=== PATIENT | male | born 2000 | race Caucasian/White ===

== ENCOUNTER → 2020-09-22 16:38 | Outpatient (CLI) | payer OTHER, SELFPAY ==
[2020-09-22 17:38] LABS: Cholesterol 148 mg/dL (140-199); HDL Cholesterol 42 mg/dL (40-60); LDL Cholesterol Calculated 72 mg/dL (<100); Triglycerides 171 mg/dL (35-150)
[2020-09-22 18:14] LABS: Hepatitis B Surface Antigen NEGATIVE s/c (NEGATIVE)
[2020-09-23 05:14] LABS: Hepatitis B Core Antibody Negative (Negative)
[2020-09-23 12:53] LABS: Hepatitis B Surf Ab Qualitativ Reactive (.)
[2020-09-24 12:38] LABS: QuantiFERON Mitogen Value >10.00 IU/mL (.); QuantiFERON Nil Value <0.00 IU/mL (.); QuantiFERON TB Gold Plus Negative (Negative); QuantiFERON TB1 Ag Value <0.00 IU/mL (.); QuantiFERON TB2 Ag Value 0.02 IU/mL (.)
== END ==
PROVIDERS: Referring Provider Internal Medicine; Visit Provider Internal Medicine
DX: K51.90 Ulcerative colitis, unspecified, without complications (principal); Z13.220 Encounter for screening for lipoid disorders; Z83.438 Family history of other disorder of lipoprotein metabolism and other lipidemia; E66.9 Obesity, unspecified; Z68.32 Body mass index [BMI] 32.0-32.9, adult
CPT/HCPCS: 36415; 80061; 86480; 86704; 86706; 87340